=== PATIENT | female | born 1950 | race Caucasian/White ===

== ENCOUNTER 2017-10-03 11:26 | Emergency (ER) | payer BC, MEDICARE ==
[~2017-10-03] VITALS: Ht 167.6 cm; Wt 69.8 kg
[~2017-10-03 11:26] MED LIST: ABILIFY5 MG; ANTIVERT25 MG PO; ASPIRIN EC81 MG PO; AUGMENTIN 875-1 EACH PO; CYCLOBENZAPRINE5 MG PO; DEPAKOTE500 MG PO; DICLOFENAC POTA50 MG PO; EXCEDRIN MIGRA1 EAC2 PO; FISH OIL 1,0001 EAC2 NG; GABAPENTIN600 MG PO; HYDROXYZINE PAM25 MG PO; KLOR-CON 1010 MEQ PO; LAMICTAL100 MG PO; LEVOTHYROXINE150 MCG PO; METAMUCIL POWD283 GM PO; METFORMIN HCL500 MG PO; PERCOCET 7.5-31 EACH PO; SEROQUEL XR150 MG PO; SUMATRIPTAN SUC25 MG PO; TOPAMAX25 MG PO; TRANSDERM-SCOP1 EA TD; ULTRAM50 MG PO; VERAPAMIL ER P300 MG PO
[2017-10-03] MEDS ORDERED: DIAZEPAM5 MG PO (11:52)
[2017-10-03] MEDS ORDERED: OXYCODONE HCL5 MG PO (11:52)
[2017-10-03] MEDS ORDERED: LOVASTATIN40 MG PO (11:52)
[2017-10-03] MEDS ORDERED: LORAZEPAM0.5 MG PO (11:53)
== END 2017-10-03 14:06 | disposition home or self-care (01) ==
LOC: ED 11:26
DX: M96.840 Postprocedural hematoma of a musculoskeletal structure following a musculoskeletal system procedure (principal); R22.42 Localized swelling, mass and lump, left lower limb; F31.9 Bipolar disorder, unspecified; F41.9 Anxiety disorder, unspecified; E03.9 Hypothyroidism, unspecified; Z87.891 Personal history of nicotine dependence; Z86.718 Personal history of other venous thrombosis and embolism; Z90.49 Acquired absence of other specified parts of digestive tract; Z90.89 Acquired absence of other organs; Z90.710 Acquired absence of both cervix and uterus; Z88.2 Allergy status to sulfonamides; Z91.013 Allergy to seafood; Z91.018 Allergy to other foods; Z79.899 Other long term (current) drug therapy
CPT/HCPCS: 74177; 80048; 85025; 85610; 93971; 99284; Q9967

== ENCOUNTER 2019-06-19 05:50 | Day surgery (SDC) | payer BC, MEDICARE ==
[~2019-06-19] VITALS: Ht 167.6 cm; Wt 69.8 kg
[~2019-06-19 05:50] MED LIST changes: +ADVIL200 MG PO; +DIAZEPAM5 MG PO; +LORAZEPAM0.5 MG PO; +LOVASTATIN40 MG PO; +OXYCODONE HCL5 MG PO
--- NOTE | 2019-06-19 08:07 | NUR ---
06/19/19 0807 Nichole Perea 0802-PATIENT ARRIVED TO PACU ON 4L NC NONAROUSABLE. LAYING LEFT LATERAL. RR EVEN. SR. IVF INFUSING.
--- NOTE | 2019-06-19 11:58 | NUR ---
PT ALERT, ORIENTED AND SUPPORTED BY HER LOKESH. PT HAS HAD PREVIOUS EGD, SEEMS SOMEWHAT ANXIOUS. BOTH PLEASANT, HAD FEW QUESTIONS. PT DID REQUEST PRAYER, WILL FOLLOW NEEDED
--- NOTE | 2019-06-19 18:09 | OR ---
[facility] [address] [place], [place] [address] Signed DATE OF OPERATION: 06/19/2019 SURGEON: Rocio Mitchell MD PREOPERATIVE DIAGNOSIS: Globus sensation (cervical dysphagia) at upper esophagus. POSTOPERATIVE DIAGNOSES: 1. Antral gastritis. 2. Soft plaque-like lesions in mid upper esophagus, normal-appearing vocal cords and hypopharynx. PROCEDURE: Esophagogastroduodenoscopy with biopsy. ANESTHESIA: Intravenous sedation, propofol infusion; Marjorie Dorantes CRNA. INDICATION: This 68-year-old white woman is a patient of NIRMAL Rodriguez. She has several psychologic issues, for which, she takes multiple medications. She underwent upper endoscopy by me in April of 2015, as well as colonoscopy. At that time, she had vague upper abdominal symptoms but not specifically dysphagia. A small hiatal hernia was noted as well as some antral gastritis. She had no evidence of Clark's epithelium. She now complains of cervical dysphagia. She has had some upper abdominal symptoms on the left side, which were poorly described. She has been empirically treated for possible esophageal spasm with nitroglycerin sublingually, which has helped. She has been treated by timber setter with the nitroglycerin possibly on the basis that might represent coronary artery disease. She does suffer from bipolar disease and takes medications for that. She is admitted at this time to undergo upper endoscopy to better characterize her current symptoms, understanding the risks of bleeding, infection, and perforation. FINDINGS: There is no sign of neoplasm of the hypopharynx or vocal cords. Vocal cords appeared to be symmetric and without sign of abnormality. The esophagus itself showed no sign of severe inflammation, though she did have soft, flat, plaque-like raised lesions of the mid to upper esophagus. These were biopsied. As regard to the stomach, there was a small hiatal hernia. There was antral gastritis. No ulceration. Duodenum appeared normal. CLOtest was negative 20 minutes postprocedure. Electronically Signed By: ROCIO MITCHELL MD 06/19/19 1809 PATIENT NAME: SRINIVAS PANCHAL OPERATIVE REPORT DATE OF : 54 REPORT #: [id number] PHYSICIAN: ROCIO MITCHELL MD PCP: JUAN JOSE ARCEO DO REPORT IS CONFIDENTIAL AND NOT TO BE RELEASED WITHOUT AUTHORIZATION [facility] [address] [place], [place] [address] Signed DESCRIPTION OF PROCEDURE: The patient was brought to the endoscopy suite, given topical Hurricaine hypopharyngeal spray anesthesia, and placed in lateral decubitus position. She was given propofol sedation with full cardiopulmonary monitoring. A bite block was placed. An Olympus video upper endoscope was passed in the hypopharynx. The vocal cords briefly examined and appeared normal. Scope was advanced to the esophagus and passed to the stomach showing no evidence of stricture upon passage of the scope. Stomach was insufflated with air with some bile in the stomach, not much. Rugal folds were reasonably normal. There was some antral gastritis. No sign of ulceration or erosion. The pylorus was normal. Scope was passed through into the duodenum, which was normal. Biopsies were obtained of the duodenum to assess for celiac disease. The scope was withdrawn and biopsies then taken of the antrum for both PAULA and pathologic testing. Retroflexed view confirmed a poor flap valve. The scope was withdrawn to the distal esophagus where there was no evidence of Clark's epithelium. Further withdrawal of scope to the mid portion showed flat plaque-like abnormalities better seen with narrow band imaging. These were biopsied. Distal esophageal biopsies had been obtained as well. The scope was withdrawn to the hypopharynx and upper esophagus showing no sign of neoplasm. No Clark's epithelium or other issue. Vocal cords were then carefully examined showing no sign of abnormality. The scope was removed and the patient was taken to recovery room in good condition. CONCLUDING DIAGNOSIS: Antral gastritis and clinical reflux esophagitis, possible esophageal spasm. No sign of stricture. Uncertain as to the etiology and histology of the plaque-like lesions. Biopsies are pending. PLAN: We will initiate PPI medication and assess her result with it. She will return in 6 weeks or so. We will assess her clinical progress and her pathology report. MD JOSLYN Nichole/MODL /[id number] Electronically Signed By: ROCIO MITCHELL MD 06/19/19 1809 PATIENT NAME: SRINIVAS PANCHAL OPERATIVE REPORT DATE OF : 54 REPORT #: [id number] PHYSICIAN: ROCIO MITCHELL MD PCP: JUAN JOSE ARCEO DO REPORT IS CONFIDENTIAL AND NOT TO BE RELEASED WITHOUT AUTHORIZATION [address] [address] Signed cc: NIRMAL Rodriguez Copies: ~ Electronically Signed By: ROCIO MITCHELL MD 06/19/19 1809 PATIENT NAME: SRINIVAS PANCHAL OPERATIVE REPORT DATE OF : 54 REPORT #: [id number] PHYSICIAN: ROCIO MITCHELL MD PCP: JUAN JOSE ARCEO DO REPORT IS CONFIDENTIAL AND NOT TO BE RELEASED WITHOUT AUTHORIZATION
--- NOTE | 2019-06-23 14:39 | PATH ---
[facility] [address] [place], [place] [address] Signed SPECIMEN(S): C LOWER ESOPHAGUS SPECIMEN(S): D MIDDLE ESOPHAGUS FLAT LESIONS SPECIMEN(S): E ESOPHAGUS NOS AT 20 CM SPECIMEN(S): A DUODENUM NOS SPECIMEN(S): B ANTRUM/PYLORUS SPECIMEN SOURCE: A. DUODENUM NOS B. ANTRUM/PYLORUS C. LOWER ESOPHAGUS D. MIDDLE ESOPHAGUS FLAT LESIONS E. ESOPHAGUS NOS AT 20 CM CLINICAL HISTORY: GERD with esophagitis, history of cholecystectomy. MICROSCOPIC DESCRIPTION: Histologic sections of all submitted blocks are examined by light microscopy. These findings, together with the gross examination, support the pathologic diagnosis. FINAL PATHOLOGIC DIAGNOSIS: A. Duodenum, biopsy: - Duodenal mucosa with no histopathologic abnormality. - Normal villous architecture present. - Negative for dysplasia or malignancy. B. Stomach, antrum, biopsy: - Antral mucosa with chronic, inactive gastritis. - No Helicobacter organisms identified on HE stain. - Negative for dysplasia or malignancy. C. Esophagus, lower, biopsy: - Reactive esophageal mucosa with changes consistent with reflux esophagitis. - Negative for intestinal metaplasia, dysplasia or malignancy. D. Esophagus, mid, flat lesions, biopsy: - One fragment of squamocolumnar junctional mucosa with active chronic inflammation and reactive epithelial changes. - Fragments of squamous epithelium with changes consistent with reflux esophagitis. - Negative for intestinal metaplasia, dysplasia, or malignancy. E. Esophagus, 20 cm, biopsy: - Reactive esophageal mucosa with changes consistent with reflux esophagitis, see Comment. PATIENT NAME: SRINIVAS PANCHAL PATHOLOGY DATE OF : 54 REPORT #: [id number] PHYSICIAN: FRANKY EDMONDS PCP: JUAN JOSE ARCEO DO REPORT IS CONFIDENTIAL AND NOT TO BE RELEASED WITHOUT AUTHORIZATION [facility] [address] [place], [place] [address] Signed - Negative for intestinal metaplasia, dysplasia, or malignancy. COMMENT: Sections of the esophageal biopsies include squamous mucosa with scattered intraepithelial neutrophils, reactive cellular enlargement, areas of basal cell hyperplasia, and mucosal capillary dilation. These findings are consistent with changes due to reflux esophagitis. A PAS special stain for fungus (with appropriately staining controls) was performed on specimen E and is negative for fungal organisms. NAL:smn:C2NR GROSS DESCRIPTION: Five specimens are received in five containers, labeled "PRASANTH." A. The specimen, labeled "PRASANTH, duodenum biopsy #1," is received in formalin and consists of two foster soft tissue fragment(s) that measure 0.2 and 0.2 cm in greatest dimension. The specimen is entirely submitted in cassette (A1). B. The specimen, labeled "PRASANTH, antrum/pylorus biopsy, #2," is received in formalin and consists of three foster soft tissue fragment(s) that measure 0.2-0.4 cm in greatest dimension. The specimen is entirely submitted in cassette (B1). C. The specimen, labeled "PRASANTH, lower esophagus #3," is received in formalin and consists of two white-foster soft tissue fragment(s) that measure 0.2 and 0.7 cm in greatest dimension. The specimen is entirely submitted in cassette (C1). D. The specimen, labeled "PRASANTH, #4 middle esophagus flat lesions," is received in formalin and consists of four white-foster soft tissue fragment(s) that measure 0.2-0.4 cm in greatest dimension. The specimen is entirely submitted in cassette (D1). E. The specimen, labeled "PRASANTH, #5 esophagus at 20 cm," is received in formalin and consists of three white-foster soft tissue fragment(s) that measure 0.2-0.4 cm in greatest dimension. The specimen is entirely submitted in cassette (E1). FB (under the direct supervision of a pathologist) The Gross Description was prepared using a voice recognition system. The report was reviewed for accuracy; however, sound-alike word errors, addition and/or deletions may occur. If there is any question about this report, please contact Client Services. PATIENT NAME: SRINIVAS PANCHAL PATHOLOGY DATE OF : 54 REPORT #: [id number] PHYSICIAN: FRANKY EDMONDS PCP: JUAN JOSE ARCEO DO REPORT IS CONFIDENTIAL AND NOT TO BE RELEASED WITHOUT AUTHORIZATION [facility] [address] [place], [place] [address] Signed PERFORMING LABORATORY: The technical component was performed by [facility] [address] (Pilot Boat Captain: Reanna Block MD; CLIA# [id number]). Professional [facility] [address] [address] (Pilot Boat Captain: Dinesh Hopson MD; CLIA# [id number]). Diagnostician: Jackelin Lucero MD Pathologist Electronically Signed 06/23/2019 Copies: ~ PATIENT NAME: SRINIVAS PANCHAL PATHOLOGY DATE OF : 54 REPORT #: [id number] PHYSICIAN: FRANKY EDMONDS PCP: JUAN JOSE ARCEO DO REPORT IS CONFIDENTIAL AND NOT TO BE RELEASED WITHOUT AUTHORIZATION
== END 2019-06-19 08:50 | disposition home or self-care (01) ==
LOC: OPS 05:50 → DS 05:50 → OPS 06:45 → DS 06:45 → OPS 08:50
PROVIDERS: Surgery
PROC: 0DB38ZX Excision of Lower Esophagus, Via Natural or Artificial Opening Endoscopic, Diagnostic (ICD-10-PCS; 2019-06-19)
PROC: 0DB78ZX Excision of Stomach, Pylorus, Via Natural or Artificial Opening Endoscopic, Diagnostic (ICD-10-PCS; 2019-06-19)
PROC: 0DB28ZX Excision of Middle Esophagus, Via Natural or Artificial Opening Endoscopic, Diagnostic (ICD-10-PCS; 2019-06-19)
PROC: 0DB58ZX Excision of Esophagus, Via Natural or Artificial Opening Endoscopic, Diagnostic (ICD-10-PCS; 2019-06-19)
PROC: 0DB98ZX Excision of Duodenum, Via Natural or Artificial Opening Endoscopic, Diagnostic (ICD-10-PCS; principal; 2019-06-19 06:45)
DX: K29.50 Unspecified chronic gastritis without bleeding (principal); K21.0 Gastro-esophageal reflux disease with esophagitis; E03.9 Hypothyroidism, unspecified; F31.9 Bipolar disorder, unspecified; M54.2 Cervicalgia; R19.7 Diarrhea, unspecified; F41.9 Anxiety disorder, unspecified; F43.10 Post-traumatic stress disorder, unspecified; Z88.2 Allergy status to sulfonamides; Z90.49 Acquired absence of other specified parts of digestive tract; Z79.899 Other long term (current) drug therapy
CPT/HCPCS: J2250; J2704; J3010

== ENCOUNTER 2019-11-15 13:28 | Emergency (ER) | payer BC, MEDICARE ==
[~2019-11-15] VITALS: Ht 167.6 cm; Wt 66.7 kg
[2019-11-15] MEDS ORDERED: GABAPENTIN800 MG PO (13:41)
[2019-11-15] MEDS ORDERED: HYDROXYZINE HCL25 MG PO (13:43)
[2019-11-15] MEDS ORDERED: NORCO 5-325 TA1 EACH PO (14:38)
== END 2019-11-15 15:52 | disposition home or self-care (01) ==
LOC: ED 13:28
DX: S59.201A Unspecified physeal fracture of lower end of radius, right arm, initial encounter for closed fracture (principal); G43.909 Migraine, unspecified, not intractable, without status migrainosus; F41.9 Anxiety disorder, unspecified; E03.9 Hypothyroidism, unspecified; E78.00 Pure hypercholesterolemia, unspecified; Z87.891 Personal history of nicotine dependence; Z88.2 Allergy status to sulfonamides; X58.XXXA Exposure to other specified factors, initial encounter
CPT/HCPCS: 29125; 73110; 99283-25

== ENCOUNTER 2022-09-28 09:40 | Emergency (ER) | payer BC, MEDICARE ==
[~2022-09-28] VITALS: Ht 170.2 cm; Wt 73.9 kg
[~2022-09-28 09:40] MED LIST changes: +GABAPENTIN800 MG PO; +HYDROXYZINE HCL25 MG PO; +NORCO 5-325 TA1 EACH PO
--- OUTSIDE RECORDS SUMMARY | 2022-09-28 09:46 | XMS ---
PreManage Notification: SRINIVAS PANCHAL Security Area Representative Events No recent Security Events currently on file CRITERIA MET - PDMP CARE PROVIDERS AUGUSTIN [facility] Current PHONE: [phone] Salas has no Care Guidelines for this patient. ERocio VISIT COUNT (12 MO.) 1 BAILEY Rosen TOTAL 1 NOTE: Visits indicate total known visits. ED/UCC VISIT TRACKING (12 MO.) 09/28/2022 09:42 BAILEY [place] TYPE: Emergency COMPLAINT: - HEADACHES, FEVER, WEAKNESS INPATIENT VISIT TRACKING (12 MO.) No inpatient visits to display in this time frame [email or web address]
[2022-09-28] MEDS ORDERED: K-TAB ER20 MEQ PO (12:00)
== END 2022-09-28 12:09 | disposition home or self-care (01) ==
LOC: ED 09:40
DX: J06.9 Acute upper respiratory infection, unspecified (principal); F41.9 Anxiety disorder, unspecified; E03.9 Hypothyroidism, unspecified; E78.00 Pure hypercholesterolemia, unspecified; Z86.718 Personal history of other venous thrombosis and embolism; Z87.891 Personal history of nicotine dependence; Z88.2 Allergy status to sulfonamides; Z91.018 Allergy to other foods; Z79.899 Other long term (current) drug therapy; Z20.822 Contact with and (suspected) exposure to COVID-19
CPT/HCPCS: 36415; 80048; 85025; 87502; 96361; 96374; 96375; 99284-25; C9803; J1885; J2060; J2405; J7030; U0003

== ENCOUNTER 2024-12-16 08:45 | Day surgery (SDC) | payer BC, MEDICARE ==
[2024-12-15 14:40] VITALS: BP 134/75
[~2024-12-16] VITALS: Ht 170.2 cm; Wt 74.1 kg
[~2024-12-16 08:45] MED LIST changes: +ALENDRONATE SOD70 MG PO; +CEFAZOLIN SODIUM 2 GM/20 ML SYR IV SCH; +CLONIDINE HCL0.1 MG PO; +COZAAR25 MG PO; +FLONASE ALLERG9.9 ML NAS; +IBLOOD GLUCOSE TEST STRIP 1 EA TEST VI PRN; +K-TAB ER20 MEQ PO; +LACTATED RINGER'S 1,000 ML IV SCH; +LIDOCAINE 1% W/ EPI 1:100,000 20 ML MDV ONE; +LIDOCAINE HCL 1% 5 ML SDV INJ ONE; +NITROGLYCERIN0.4 MG SL; +RIZATRIPTAN10 M1 PO; +SEVOFLURANE 250 ML BTL INH ONE; +TRAZODONE HCL50 MG PO
[2024-12-16 09:08] VITALS: BP 147/74
[2024-12-16] MEDS ORDERED: CYMBALTA30 MG PO (09:13)
[2024-12-16] MEDS ORDERED: CRESTOR40 MG NG (09:14)
[2024-12-16] MEDS ORDERED: AMOX TR-K CLV1 EAC1 PO (09:16)
[2024-12-16] MEDS ORDERED: OXYMETAZOLINE HCL 30 ML BTL NAS SCH (09:45)
[2024-12-16] MEDS ORDERED: DEXAMETHASONE SOD PHOS 4 MG/ML VIAL ONE (10:43)
[2024-12-16] MEDS ORDERED: ondansetron HCL 4 MG/2 ML VIAL ONE (10:43)
[2024-12-16] MEDS ORDERED: ROCURONIUM BROMIDE 50 MG/5 ML SYR ONE (10:43)
[2024-12-16] MEDS ORDERED: LIDOCAINE HCL 2% 5 ML SDV ONE (10:43)
[2024-12-16] MEDS ORDERED: fentaNYL citrate 100 MCG/2 ML VIAL ONE (10:43)
[2024-12-16] MEDS ORDERED: propofoL 200 MG/20 ML VIAL ONE (10:43)
[2024-12-16] MEDS ORDERED: SUGAMMADEX SODIUM 200 MG/2 ML ML ONE (11:10)
[2024-12-16] MEDS ORDERED: IBLOOD GLUCOSE TEST STRIP 1 EA TEST VI PRN (11:15)
[2024-12-16] MEDS ORDERED: fentaNYL citrate 50 MCG/ML SDV IV PRN (11:15)
[2024-12-16] MEDS ORDERED: droPERidol 5 MG/2 ML VIAL IV PRN (11:15)
[2024-12-16] MEDS ORDERED: NALOXONE HCL 0.4 MG SYR IV PRN (11:15)
[2024-12-16] MEDS ORDERED: HYDROmorphone HCL 1 MG/ML SYR IV PRN (11:15)
[2024-12-16] MEDS ORDERED: PROCHLORPERAZINE EDISYLATE 10 MG/2 ML VIAL IV PRN (11:15)
[2024-12-16] MEDS ORDERED: ondansetron HCL 4 MG/2 ML VIAL IV PRN (11:15)
--- NOTE | 2024-12-16 12:12 | OR ---
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 PROCEDURES: Left intranasal ethmoidectomy, maxillary antrostomy, and closure of left oral antral fistula. ANESTHESIA: General, orotracheal; LABEL STAMPER, Fredi PREOP HISTORY: Srinivas is a 74-year-old lady, who has had left sinus infection for several months since a posterior molar maxillary left-sided tooth extraction. She has had purulent drainage from the tooth socket. CAT scan recently has shown opacification of the left maxillary and ethmoid sinuses and a presumptive oral antral fistula and she has been unresponsive to appropriate medications, taken to the operating for the above-mentioned procedures. OPERATIVE PROCEDURE AND FINDINGS: After informed consent, the patient was taken to the operating room, placed in supine position, where general orotracheal anesthesia was induced. The preop CT was viewed throughout. The patient received preoperative intranasal oxymetazoline, intravenous Ancef. Headlight speculum exam of the nasal cavity showed the right side to be clear of the left side. Polypoid material in the middle meatus, middle turbinate was medialized. Ethmoid air cells opened. Polypoid material obtained. A medial meatal antrostomy was made with a curved ring curette. A scant amount of purulent material with polypoid mucosa removed from the antrostomy and from the maxillary sinus. The antrostomy was widened with the Jae. Bleeding was minimal. Packing was placed. A Rao pack coated with Neosporin in the middle meatus and a trimmed Merocel pack coated with Neosporin in the nasal cavity. The left maxillary oral antral fistula was then approached transorally. Mucosa around the fistula was elevated off the maxillary bone. The fistula itself was about 5-6 mm in Electronically Signed By: BOLIVAR ADAMS MD 12/16/24 1212 PATIENT NAME: SRINIVAS PANCHAL OPERATIVE REPORT DATE OF : 54 REPORT #: [id number] PHYSICIAN: BOLIVAR ADAMS MD PCP: ROSALIA RUFFIN MD REPORT IS CONFIDENTIAL AND NOT TO BE RELEASED WITHOUT AUTHORIZATION [facility] [address] [place], [place] [address] Signed diameter, had purulence coming from it. After elevation of the mucosa and the closure with 4-0 interrupted Vicryl, the pharynx was then suctioned clear of blood and secretions. The patient was awakened, extubated, and transported to the recovery room in good condition. No complications. BLOOD LOSS: Minimal. SPECIMENS: To pathology, left sinus contents. DATA REVIEWED: No drains. COMPLICATIONS: No complications. Bolivar Adams MD GC/MODL /[id number] Copies: ~ Electronically Signed By: BOLIVAR ADAMS MD 12/16/24 1212 PATIENT NAME: SRINIVAS PANCHAL OPERATIVE REPORT DATE OF : 54 REPORT #: [id number] PHYSICIAN: BOLIVAR ADAMS MD PCP: ROSALIA RUFFIN MD REPORT IS CONFIDENTIAL AND NOT TO BE RELEASED WITHOUT AUTHORIZATION
[2024-12-16] MEDS ORDERED: hydrALAZINE HCL 20 MG/ML VIAL IV PRN (12:15)
[2024-12-16 12:51] VITALS: BP 160/65
--- NOTE | 2024-12-16 13:00 | NUR ---
patient returns to room 3 from PACU. report received from YOANNA Smith. Patient is awake and oriented and is talking upon arrival. She is asking for oral pain medication. She has gauze placed to underside of nose to catch drainage. Gauze is starting to saturate through. Gauze replaced at this time. Vital signs obtained, patient hypertensive. She received a total of 10mg of hydralazine in PACU. Pudding provided to patient and then medicated with ordered pain medication. 1313- Discharge expectations were reviewed with patient and she expressed understanding. she states that she would like to go to the restroom at this time. Patient uses a cane at baseline to amulate. Patient amulates with a steady gait to the restroom 1318- patient able to urinate 200mL. She ambulates back to her room without difficulty. Patient states that she would like to get dressed at this time, so allowed to get dressed. I did explain that she still has to stay with me for about another 40 minutes. She denies any other needs at this time
[2024-12-16] MEDS ORDERED: HYDROCODONE/ACETA 5/325 TAB PO PRN (13:15)
[2024-12-16] MEDS ORDERED: HYDROCODON-ACE1 EA10 PO (13:35)
[2024-12-16 13:50] VITALS: BP 126/63
--- NOTE | 2024-12-16 13:50 | NUR ---
Discharge instructions were reviewed with patient and her spouse in detail and they both express understanding of all instructions. IV removed from right hand. Vital signs obtained. 1355- Patient discharged from unit via wheelchair where her Sancho is to take her home.
--- NOTE | 2024-12-16 15:23 | NUR ---
12/16/24 1523 Sheets,Sarah 1130 PT ARRIVED TO PACU WITH ORAL AIRWAY IN PLACE AND 6L VIA MASK. PT STARTS COUGHING AND ORAL AIRWAY REMOVED, HOB INCREASED. PT EYES REMAIN CLOSED. SMALL AMOUNT OF DRAINAGE NOTED FROM LEFT NARE. TISSUE USED TO CATCH DRAINAGE, RED MUCUS DRAINAGE NOTED. RN REORIENTING PT TO PACU. 1133 O2 MASK REMOVED. PT CONTINES TO COUGH AND SPIT OUT RED MUCUS DRAINAGE FROM MOUTH. GAUZE AND TAPE DRESSING PLACED DRIP PAD UNDER PT NOSE TO CATCH DRAINAGE. PT OPENING HER EYES. 1135 MD AT BEDSIDE AND MD GIVES PT HER GLASSES, PT ABLE TO PLACE HER GLASSES ON HER FACE.
--- NOTE | 2024-12-18 16:39 | PATH ---
[facility] [facility] [address] [place], [place] [address] Signed SPECIMEN(S): A LEFT MAXILLARY SINUS CONTENTS SPECIMEN SOURCE: A. LEFT MAXILLARY SINUS CONTENTS CLINICAL HISTORY: Left maxillary sinus fistula FINAL PATHOLOGIC DIAGNOSIS: Left maxillary sinus contents: - Benign respiratory-type mucosa with focal increased stromal chronic inflammation. - Negative for significantly increased eosinophils . JVR:clv MICROSCOPIC EXAMINATION: Histologic sections of all submitted blocks are examined by light microscopy. These findings, together with the gross examination, support the pathologic diagnosis. GROSS DESCRIPTION: The specimen, labeled and designated "[place], left maxillary sinus contents," is received in formalin and consists of multiple fragments of pink-foster to red-brown soft and cartilaginous tissue (1.8 x 0.9 x 0.3 cm in aggregate). The specimen is submitted entirely in cassette (A1) following decalcification in decal stat. VB (under the direct supervision of a pathologist) The Gross Description was prepared using a voice recognition system. The report was reviewed for accuracy; however, sound-alike word errors, addition and/or deletions may occur. If there is any question about this report, please contact Client Services. PERFORMING LABORATORY: The technical component was performed by [employer], [address] [place] [id number] (CLIA# [id number]). Professional interpretation was performed by [facility], [address] [place] [id number] (CLIA#: [id number]). Diagnostician: Fabricio Smith MD Pathologist Electronically Signed 12/18/2024 PATIENT NAME: SRINIVAS PANCHAL PATHOLOGY DATE OF : 54 REPORT #: [id number] PHYSICIAN: FRANKY PATHOLOGY PCP: ROSALIA RUFFIN MD REPORT IS CONFIDENTIAL AND NOT TO BE RELEASED WITHOUT AUTHORIZATION [address] [place], [place] [address] Signed Copies: ~ PATIENT NAME: SRINIVAS PANCHAL PATHOLOGY DATE OF : 54 REPORT #: [id number] PHYSICIAN: [facility] PCP: ROSALIA RUFFIN MD REPORT IS CONFIDENTIAL AND NOT TO BE RELEASED WITHOUT AUTHORIZATION
== END 2024-12-16 13:55 | disposition home or self-care (01) ==
LOC: DS 08:45 → OPS 08:45 → DS 10:45 → OPS 13:55
PROVIDERS: ATTEND Otolaryngology
PROC: 0WQ30ZZ Repair Oral Cavity and Throat, Open Approach (ICD-10-PCS; 2024-12-16)
PROC: 09BV0ZZ Excision of Left Ethmoid Sinus, Open Approach (ICD-10-PCS; principal; 2024-12-16 10:45)
PROC: 099R7ZZ Drainage of Left Maxillary Sinus, Via Natural or Artificial Opening (ICD-10-PCS; 2024-12-16 10:45)
DX: J32.2 Chronic ethmoidal sinusitis (principal); J32.0 Chronic maxillary sinusitis; I10 Essential (primary) hypertension; E78.00 Pure hypercholesterolemia, unspecified; E03.9 Hypothyroidism, unspecified; F31.9 Bipolar disorder, unspecified; Z79.890 Hormone replacement therapy; Z79.83 Long term (current) use of bisphosphonates; Z79.899 Other long term (current) drug therapy; Z88.2 Allergy status to sulfonamides; Z87.891 Personal history of nicotine dependence
CPT/HCPCS: 00160; J0360; J0690; J1100; J2003; J2405; J2704; J3010; J3490; J7121